=== PATIENT | female | born 1960 | race Asian ===

== ENCOUNTER 2019-05-24 17:49 | Emergency (ER) | payer OTHER ==
[~2019-05-24] VITALS: Ht 152.4 cm; Wt 54.4 kg
[~2019-05-24 17:49] MED LIST: METO25TA6 PO
[2019-05-24 17:58] VITALS: BP_SYST 125
[2019-05-24] MEDS ORDERED: LORazepam 1 MG TABLET PO ONE (18:00)
--- NOTE | 2019-05-24 18:00 | NUR ---
ER at bedside examining patient.
--- NOTE | 2019-05-24 18:30 | NUR ---
patient bib ambulance with cc of chest pain since this morning, not releived by medication. not s/s of distress. vital sign stable, afebrile. ekg done SR. mandarin speaking, able to understand simple [place]. spouse at the bedside. encourage to notify nurse. if any unsual feeling. verbalized understanding.
[2019-05-24 18:33] LABS: BASOPHILS % (AUTO) 0.7 % (0.0-2.0); EOSINOPHILS # (AUTO) 0.4 K/uL (0.0-0.4); EOSINOPHILS % (AUTO) 8.3 % (0.0-4.0); HEMATOCRIT 43.9 % (36-48); LYMPHOCYTES # (AUTO) 1.5 K/uL (1.0-5.5); LYMPHOCYTES % (AUTO) 35.2 % (20.5-51.5); MEAN CORPUSCULAR HEMOGLOBIN 31 pg (27-31); MEAN CORPUSCULAR HGB CONC 34 % (32-36); MEAN CORPUSCULAR VOLUME 90 fL (79.0-98.0); MONOCYTES # (AUTO) 0.3 K/uL (0.0-1.0); MONOCYTES % (AUTO) 6.5 % (1.7-9.3); NEUTROPHILS # (AUTO) 2.1 K/uL (1.8-7.7); NEUTROPHILS % (AUTO) 49.3 % (40.0-70.0); PLATELET COUNT (AUTO) 167 K/uL (130-430); RED BLOOD CELL COUNT(AUTO) 4.87 MIL/uL (4.2-6.2); RED CELL DISTRIBUTION WIDTH 12.4 % (9.0-15.0); WHITE BLOOD COUNT (AUTO) 4.3 K/uL (4.8-10.8)
[2019-05-24 18:47] LABS: ANION GAP 7 (5-15); CALCIUM 8.8 mg/dL (8.4-11.0); CHLORIDE 103 mmol/L (98-107); CREATININE 0.64 mg/dL (0.55-1.30); GLUCOSE 104 mg/dL (70-99); POTASSIUM 3.6 mmol/L (3.5-5.1); SODIUM SERUM 138 mmol/L (136-145); UREA NITROGEN, BLOOD 18 mg/dL (8-21)
[2019-05-24 18:49] LABS: GFR AFRICAN AMERICAN 122 mL/min (>90)
[2019-05-24 18:53] LABS: ALANINE AMINOTRANSFERASE 45 U/L (12-78); ALBUMIN 3.9 g/dL (3.4-4.8); ASPARTATE AMINOTRANSFERASE 28 U/L (10-37); TOTAL BILIRUBIN 0.6 mg/dL (0.0-1.0)
--- NOTE | 2019-05-24 19:30 | NUR ---
ASSUMED CARE. RECEIVED ALERT,ORIENTED. AFEBRILE, NOT IN ACUTE DISTRESS. VERBALIZED IMPROVED CHEST PAIN. VS STABLE, WILL CONTINUE TO MONITOR.
--- NOTE | 2019-05-24 20:21 | NUR ---
DISCHARGED STABLE AND IMPROVED. PRESCRIPTION,VERBAL AND WRITTEN AFTERCARRE INSTRUCTIONS GIVEN. VERBALIZED UNDERSTANDING. LEFT AMBULATORY WITH STABLE GAIT.
[2019-05-24 20:40] VITALS: BP_SYST 96
== END 2019-05-24 20:40 | disposition home or self-care (01) ==
LOC: SED 17:49
DX: K20.9 Esophagitis, unspecified (principal); I10 Essential (primary) hypertension; Z88.0 Allergy status to penicillin; Z79.899 Other long term (current) drug therapy
CPT/HCPCS: 36415; 71045; 80053; 81002; 82550-TC; 84484; 84703; 85025; 85610-TC; 85730-TC; 93005; 99284

== ENCOUNTER 2019-07-26 16:01 | Emergency (ER) | payer OTHER ==
[~2019-07-26] VITALS: Ht 162.6 cm; Wt 57.6 kg
[2019-07-26 16:30] VITALS: BP_SYST 107
[2019-07-26] MEDS ORDERED: ONDANSETRON 4 MG ODT TAB PO ONE (16:45)
[2019-07-26] MEDS ORDERED: HYDROcodone/ACETAMIN 7.5-325 MG TAB PO ONE (16:45)
[2019-07-26 17:36] VITALS: BP_SYST 107
== END 2019-07-26 17:36 | disposition home or self-care (01) ==
LOC: SED 16:01
DX: S92.351A Displaced fracture of fifth metatarsal bone, right foot, initial encounter for closed fracture (principal); I10 Essential (primary) hypertension; Z88.0 Allergy status to penicillin; W01.0XXA Fall on same level from slipping, tripping and stumbling without subsequent striking against object, initial encounter; Y93.89 Activity, other specified; Y92.89 Other specified places as the place of occurrence of the external cause; Y99.8 Other external cause status
CPT/HCPCS: 73630; 99283; Q0162